=== PATIENT | female | born 1955 | race Hispanic/Latino ===

== ENCOUNTER 2025-01-08 19:00 | Emergency (ER) | payer BC, OTHER ==
[~2025-01-08] VITALS: Ht 160 cm; Wt 63.5 kg
--- NOTE | 2025-01-08 19:56 | NUR ---
UA CUP PROVIDED
[2025-01-08 20:24] LABS: IMMATURE GRANULOCYTE ABSOLUTE 0.02 K/uL (0-1); NUCLEATED RED BLOOD CELLS 0.0 % (0.0-0.19); PLATELET COUNT (AUTO) 178 K/uL (130-400); RED BLOOD CELL COUNT(AUTO) 3.98 MIL/uL (4.00-5.50); RED CELL DISTRIBUTION WIDTH 12.5 % (11.0-15.5); WHITE BLOOD COUNT (AUTO) 6.1 K/uL (4.8-10.8)
[2025-01-08 20:32] LABS: CREATININE 0.5 mg/dL (0.5-1.0); GLOMERULAR FILTR. RATE CALC 102.0 mL/min (>90); GLUCOSE,RANDOM 103.0 mg/dL (70-105); SODIUM SERUM 141.0 mmol/L (136-145); UREA NITROGEN, BLOOD 10.0 mg/dL (7-18)
--- NOTE | 2025-01-08 20:51 | HMCIMG ---
EXAM: CR Chest, 1 View. CLINICAL HISTORY: CHEST PAIN COMPARISON: None provided. FINDINGS: LUNGS: The lungs show no infiltrate or other acute finding. PLEURAL SPACES: No evidence of pleural effusion or pneumothorax. MEDIASTINUM: Cardiac size and mediastinal contours within normal limits. BONES: No aggressive appearing osseous lesion seen. IMPRESSION: No acute cardiopulmonary pathology is evident. /[place]
[2025-01-08 21:09] LABS: CREATINE KINASE, TOTAL 76.0 U/L (21-232)
--- NOTE | 2025-01-08 21:29 | NUR ---
UA COLLECTED AND SENT
[2025-01-08 21:47] LABS: APPEARANCE,URINE CLOUDY (CLEAR); GLUCOSE, URINE (UA) NEGATIVE (NEGATIVE); LEUKOCYTE ESTERASE ,URINE 250 Leu/uL (NEGATIVE); NITRATE,URINE NEGATIVE (NEGATIVE); OCCULT BLOOD,URINE NEGATIVE (NEGATIVE)
[2025-01-08 21:54] LABS: ADD UA MICROSCOPIC YES
[2025-01-08 21:56] LABS: SQUAMOUS EPITHELIAL CELL,UR RARE /HPF (0-2)
--- NOTE | 2025-01-08 22:51 | NUR ---
PT CARE ASSUMED AT THIS TIME
--- NOTE | 2025-01-08 23:02 | ERN ---
ED Note History of Present Illness Stated Complaint: LEFT UPPER BACK, NECK PAIN Chief Complaint: Back Pain-No Injury Time Seen by MD: 20:06 Dictation: This is a pleasant 69-year-old female who presented to the emergency room with complaints of neck pain and left upper back pain. She stated that the pain has been going on for awhile but yesterday after she was doing house chores the pain was worse with radiating to the left shoulder area and all across the left arm. No history of any injury motor vehicle accident. No muscle weakness. No history of any falls. She gets occasional headaches radiating from the neck. No blurred vision diplopia no nausea vomitings or diarrhea no dizziness or vertigo. No bladder or bowel incontinence. Temperature 98.4 pulse 86 respirations 17 blood pressure 165/73 with a pulse oximetry of 98% on room air Allergies: Uncoded Allergies: UNKNOWN ANTIBIOTIC (Allergy, Unknown, 01/08/25) Home Meds Active Scripts Tramadol Hcl (Tramadol HCl) 50 Mg Tablet, 50 MG PO TIDP for neck pain, #16 TAB 0 Refills Prov:RENEE SÁNCHEZ MD 01/08/25 Cyclobenzaprine HCl (Cyclobenzaprine HCl) 5 Mg Tablet, 1 TAB PO TIDP PRN for muscle spasms for 5 Days, #15 TAB 0 Refills Prov:RENEE SÁNCHEZ MD 01/08/25 Prednisone (Prednisone) 20 Mg Tablet, 1 TAB PO AD for 6 Days, #14 TAB 0 Refills TAKE 1 TAB BY MOUTH THREE TIMES PER DAY X3 DAYS, THEN TAKE 1 TAB BY MOUTH TWICE A DAY X2 DAYS, THEN TAKE 1 TAB BY MOUTH ONCE A DAY X1 DAY. Prov:RENEE SÁNCHEZ MD 01/08/25 Past Medical History Past Medical History: No Pertinent History Surgical History: Hysterectomy, Cholecystectomy, Other Surgical History Other: HERNIA Family History: Negative Social History: Negative History: Not Applicable RN Note Reviewed/Agreed w/PFSH: Yes Review of System Dictation Constitutional: Negative for fever,chills, and weight loss Eyes: Negative for injury, pain,redness, and discharge ENT: Negative for injury,pain or swelling Cardiovascular: Negative for chest pain, palpitations, and edema Respiratory: Negative for shortness of breath, cough, and wheezing, Abdomen/GI: Negative for abdominal pain, nausea, vomiting, diarrhea, and cons tipation Back: Negative for injury and positive for neck pain and left upper back pain and left shoulder pain : Negative for injury, bleeding and discharge MS/Extremity: Negative for injury and deformity Skin: Negative for rash, and discoloration Neuro: Negative for headache, weakness, numbness, tingling, and seizure Psych: Negative for suicide ideation, homicidal ideation, and hallucinations Initial Vital Sign VS Vital Signs Date Time Temp Pulse Resp B/P (MAP) Pulse Ox O2 Delivery O2 Flow Rate FiO2 01/08/25 19:55 98.1 70 16 172/84 99 Room Air 01/08/25 22:58 0 21 Physical Exam Dictation General: awake, alert, NAD Head/Face: Normocephalic, atraumatic Eyes: PERRL, EOMI, vision at baseline ENT: oral cavity clear, TMs clear, no signs of infection Neck: Trachea midline, supple, no nuchal rigidity paraspinal cervical muscle spasm Cardiovascular: RRR, normal S1/S2, No MRGs, no JVD Respiratory: CTAB, no respiratory distress, No rales or wheezes Abdomen: Soft, non-tender, non-distended, normal bowel sounds, no guarding or rebound. Skin: Warm, dry, normal turgor, no rash MS/Extremity: Pulses equal, no cyanosis, neurovascular intact, FROM Neuro: COAx4, GCS 15, strength 5/5, CN 2-12 intact, normal cerebellar exam, normal gait, Psych: Normal behavior, mood, and affect normal Extremities-trace edema without any palpable cords, Homans sign is negative Results (Laboratory/Radiology) Laboratory/Radiology Laboratory Tests Test 01/08/25 20:13 01/08/25 21:29 White Blood Count 6.1 K/uL (4.8-10.8) Red Blood Count 3.98 MIL/uL (4.00-5.50) L Hemoglobin 12.5 g/dL (12.0-16.0) Hematocrit 36.8 % (36-48) Mean Corpuscular Volume 92.5 fL (79-99) Mean Corpuscular Hemoglobin 31.4 pg (27.0-33.0) Mean Corpuscular Hemoglobin Concent 34.0 g/dL (32.0-36.0) Red Cell Distribution Width 12.5 % (11.0-15.5) Platelet Count 178 K/uL (130-400) Mean Platelet Volume 10.5 fL (7.5-10.5) Immature Granulocyte % (Auto) 0.3 % (0-1) Neutrophils (%) (Auto) 52.6 % (40.0-77.0) Lymphocytes (%) (Auto) 37.3 % (21.0-51.0) Monocytes (%) (Auto) 7.7 % (3.0-13.0) Eosinophils (%) (Auto) 1.6 % (0.0-8.0) Basophils (%) (Auto) 0.5 % (0.0-5.0) Neutrophils # (Auto) 3.2 K/uL (1.8-7.7) Lymphocytes # (Auto) 2.3 K/uL (1.0-4.8) Monocytes # (Auto) 0.5 K/uL (0.1-1.0) Eosinophils # (Auto) 0.10 K/uL (0.00-0.70) Basophils # (Auto) 0.03 K/uL (0.00-0.20) Absolute Immature Granulocyte (auto 0.02 K/uL (0-1) Nucleated Red Blood Cells 0.0 % (0.0-0.19) Sodium Level 141 mmol/L (136-145) Potassium Level 3.6 mmol/L (3.5-5.1) Chloride Level 103 mmol/L (101-111) Carbon Dioxide Level 33 mmol/L (21-32) H Blood Urea Nitrogen 10 mg/dL (7-18) Creatinine 0.5 mg/dL (0.5-1.0) Glomerular Filtration Rate Calc 102 mL/min (>90) Random Glucose 103 mg/dL (70-105) Total Calcium 9.0 mg/dL (8.5-10.1) Total Creatine Kinase 76 U/L (21-232) Troponin I High Sensitivity 5 ng/L (4-50) Urine Color LIGHT-YELLOW (YELLOW) Urine Appearance CLOUDY (CLEAR) H Urine pH 7.5 (5.0-8.0) Urine Specific [place] 1.010 (1.001-1.031) Urine Protein NEGATIVE mg/dL (NEGATIVE) Urine Glucose (UA) NEGATIVE mg/dL (NEGATIVE) Urine Ketones NEGATIVE mg/dL (NEGATIVE) Urine Occult Blood NEGATIVE (NEGATIVE) Urine Nitrate NEGATIVE (NEGATIVE) Urine Bilirubin NEGATIVE mg/dL (NEGATIVE) Urine Urobilinogen 0.2 mg/dL (0.2-1.0) Urine Leukocyte Esterase 250 [place]/uL (NEGATIVE) H Urine RBC 2-5 /HPF (0-1) H Urine WBC 6-10 /HPF (0-1) H Urine Squamous Epithelial Cells RARE /HPF (0-2) Urine Bacteria RARE /HPF (None Seen) Labs Reviewed?: Yes EKG Comment: Twelve lead EKG done on 01/08/2025 at 7:55 p.m. showed a heart rate of 63, MO interval 160, QRS duration 140, QT/QTC 459/470 Impression normal sinus rhythm right bundle branch block nonspecific ST-T changes. EKG rhythm strip-normal sinus rhythm with no acute STT wave changes noted. Interpreted by ER MD Dr. Sánchez X-RAY Comment: REASON: CHEST PAIN ORDERING PHYSICIAN: RENEE SÁNCHEZ MD PROCEDURE: CXR1VW - CHEST 1VW EXAM: CR Chest, 1 View. CLINICAL HISTORY: CHEST PAIN COMPARISON: None provided. FINDINGS: LUNGS: The lungs show no infiltrate or other acute finding. PLEURAL SPACES: No evidence of pleural effusion or pneumothorax. MEDIASTINUM: Cardiac size and mediastinal contours within normal limits. BONES: No aggressive appearing osseous lesion seen. IMPRESSION: No acute cardiopulmonary pathology is evident. /[place] DICTATED BY: SUSANA OSULLIVAN Jr., MD DATE: 01/08/252149 ELECTRONICALLY SIGNED BY: SUSANA OSULLIVAN Jr., MD DATE: 01/08/252149 ED Course ED Course Orders Procedure Category Date Status Time Vital Signs Per CPOE 01/08/25 Transmitted Routine 19:56 Chest 1vw RAD 01/08/25 Resulted 19:56 12 Lead Ekg Tracing- EKG 01/08/25 Logged Technical 19:56 Oxygen By Nc/Pulse Ox CPOE 01/08/25 Transmitted 19:56 Maintain Iv CPOE 01/08/25 Transmitted 19:56 Iv Insertion CPOE 01/08/25 Transmitted 19:56 Cardiac Monitoring CPOE 01/08/25 Transmitted 19:56 Pulse Oximetry With CPOE 01/08/25 Transmitted Vs And Prn 19:56 Cbc With Differential LAB 01/08/25 Complete 19:56 Activity: Br W/Brp CPOE 01/08/25 Transmitted With Assist 19:56 Creatine Kinase, Total LAB 01/08/25 Complete 19:56 Troponin I High LAB 01/08/25 Complete Sensitivity 19:56 Urinalysis Profile LAB 01/08/25 Complete 19:56 Basic Metabolic Panel LAB 01/08/25 Complete 19:56 Culture Urine ORQUIDEA 01/08/25 In Process 21:54 Ketorolac PHA 01/08/25 Complete Tromethamine 15mg/Ml 23:30 Cyclobenzaprine Hcl PHA 01/08/25 Complete (Cyclobenzaprine Hcl 23:30 Ketorolac PHA 01/09/25 Complete Tromethamine 15mg/Ml 00:00 Current Medications Medications (Trade) Dose Ordered Sig/Kendall Route PRN Reason Start Time Stop Time Status Last Admin Dose Admin Cyclobenzaprine HCl (Cyclobenzaprine HCl) 5 mg ONCE ONCE PO 01/08/25 23:30 01/08/25 23:35 DC 01/08/25 23:49 Ketorolac Tromethamine (toRADol) 15 mg ONCE ONCE IM 01/09/25 00:00 01/09/25 00:01 DC 01/09/25 00:01 Ketorolac Tromethamine (toRADol) 15 mg ONCE ONCE IV 01/08/25 23:30 01/08/25 23:40 DC Vital Signs Date Time Temp Pulse Resp B/P (MAP) Pulse Ox O2 Delivery O2 Flow Rate FiO2 01/08/25 22:58 98.4 86 17 165/73 98 Room Air* 0 21 01/08/25 19:55 98.1 70 16 172/84 99 Room Air We will perform diagnostic labs, advanced imaging and administer medications according to the patient's complaint. Once the results are available, will review and personally interpreted the labs to rule out any acute life- threatening emergency the trach require immediate intervention and treatment. I will then re-evaluate the patient after treatment and diagnostic exams have return to determine whether the patient requires any further testing, can safely be discharged home or need further admission to hospital for additional treatment and evaluation. Labs reviewed CBC BNP 7 are within normal limits. Chest x-ray is unremarkable for any acute abnormality. I had a long discussion with the patient and explained to her that this maybe degenerative arthritis or perhaps cervical radiculopathy with paraspinal muscle spasm. Symptomatic treatment with a muscle relaxant steroid and nonsteroidal. Patient feels significantly improved. Discharged on a trial of steroid and muscle relaxant. Medical Decision Making MDM Differential diagnosis: Degenerative arthritis of the neck, cervical radiculopathy, paraspinal muscle spasms, cervical spinal stenosis Rationale: Tests considered and ordered secondary to shared decision making include: Previous outside records reviewed: Old ER visits. Risk of complication and/or morbidity or mortality of patient management: None Medications-Per medication reconciliation Need for hospitalization: Patient does not meet criteria for hospitalization. Need for emergency major/minor surgery: No There are no social concerns with this patient. Prescription drug management Prescriptions will include symptomatic care Patient's prior external medical records from other ER visits were reviewed by me as indicated. Prior testing and results from previous visits were reviewed. Prior tests were taken into account with medical decision making and resource ut ilization, independent historian/historians were used to obtain complete medical history. I independently interpreted the test that were performed, results were reviewed by me and considered findings on radiology if ordered. Medical management and examination interpretation discussions were had by me with other qualified healthcare professionals as indicated for the patient's car e. Problem List Problem List: (1) Cervicalgia (2) Left cervical radiculopathy (3) Cervical paraspinal muscle spasm DX & DISP Disposition: Discharge Departure Impression: Primary Impression: Cervicalgia Additional Impressions: Cervical paraspinal muscle spasm, Left cervical radiculopathy Condition: Stable Scripts Tramadol Hcl (Tramadol HCl) 50 Mg Tablet 50 MG PO TIDP for neck pain, #16 TAB 0 Refills Prov: RENEE SÁNCHEZ MD 01/08/25 Cyclobenzaprine HCl (Cyclobenzaprine HCl) 5 Mg Tablet 1 TAB PO TIDP PRN for muscle spasms for 5 Days, #15 TAB 0 Refills Prov: RENEE SÁNCHEZ MD 01/08/25 Prednisone (Prednisone) 20 Mg Tablet 1 TAB PO AD for 6 Days, #14 TAB 0 Refills TAKE 1 TAB BY MOUTH THREE TIMES PER DAY X3 DAYS, THEN TAKE 1 TAB BY MOUTH TWICE A DAY X2 DAYS, THEN TAKE 1 TAB BY MOUTH ONCE A DAY X1 DAY. Prov: RENEE SÁNCHEZ MD 01/08/25 Additional Instructions: Patient and the caregiver have been informed of all the diagnostic tests and the imaging conducted during the today's visit to the emergency room and has verbalized understanding of the results I have personally reviewed and interpreted all diagnostic exams performed here in the ER today as well as the vital signs documented by the nursing staff. The patient is now being discharged to home and should follow up with the primary care physician or the specialist as directed by the ER staff. Follow-up with primary care provider in 1 to 2 days. Take medications as directed here in the emergency room. Okay to continue home medications unless otherwise discussed during your visit in the emergency room today. Return to your nearest emergency room if symptoms worsen or if there is no improvement. Call 911 if you need immediate assistance. Take Tylenol or Motrin [id number] as needed and if no contraindications are present. Increase oral hydration. A wound culture or urine culture was ordered here in the e mergency room department please follow-up with primary care provider and advise them to get repeat ports from our facility. If you had any Jose wrap/splints that were applied here, please do not remove them until you see your primary care or specialty. Patient must get further imaging studies and referral to orthopedic spine surgeon or neurosurgeon for further evaluation as deemed necessary. Referrals: RADHAMES MCDONOUGH JR (PCP) RENEE SÁNCHEZ MD Jan 08, 2025 23:02
[2025-01-08] MEDS ORDERED: TRAM50TA4 PO (23:29)
[2025-01-08] MEDS ORDERED: CYCL5TAB3 PO (23:29)
[2025-01-08] MEDS ORDERED: PRED20TA3 PO (23:29)
[2025-01-08] MEDS: CYCLOBENZAPRINE HCL 10 MG TABLET PO ONE (23:49)
[2025-01-09 00:40] VITALS: BP 134/76; PULSE 65; RESP 16; TEMP 98.5; O2SAT 98
--- NOTE | 2025-01-09 07:16 | EKG ---
[facility] Test Date: 2025-01-08 Test Time: 19:55:50 Pat Name: RYAN MATA Department: [facility] Room: Gender: F Bundle Collector: [birth year] : 1955 Requested By: RENEE SÁNCHEZ Order Number: [id number] Reading MD: Brady Hensley Measurements Intervals [place] Rate: 63 P: 3 SD: 160 QRS: 25 QRSD: 140 T: -18 QT: 459 QTc: 470 Interpretive Statements Sinus rhythm Right bundle branch block No previous ECG available for comparison Electronically Signed On 01-10-2025 07:23:42 CDT by Brady Hensley Please click the below link to view image of tracing.
== END 2025-01-09 00:52 | disposition home or self-care (01) ==
LOC: EDH 19:00
DX: M54.2 Cervicalgia (principal); M62.838 Other muscle spasm; M54.12 Radiculopathy, cervical region; Z88.1 Allergy status to other antibiotic agents; Z90.49 Acquired absence of other specified parts of digestive tract; Z90.710 Acquired absence of both cervix and uterus
CPT/HCPCS: 99285; 71045; 82550; 84484; 80048; 85025; 87086 ×2; 87186; 81001; 36415; 93005; 96372; J1885